=== PATIENT | male | born 2000 | race Caucasian/White ===

== ENCOUNTER 2019-10-21 17:28 | Emergency (ER) | payer BC ==
--- NOTE | 2019-10-21 18:49 | EDM.PDOC ---
ED HPI GENERAL MEDICAL PROBLEM - General Chief Complaint: ENT Problem Stated Complaint: POSSBILE FLU Time Seen by Provider: 10/21/19 18:04 Source of Information: Reports: Patient History Limitations: Reports: No Limitations - History of Present Illness INITIAL COMMENTS - FREE TEXT/NARRATIVE: 19-year-old male presents the emergency room with a chief complaint of sore throat. The patient has no fever and no cough. Patient has no shortness of breath. Patient came in from [place] 10 days ago. No other exotic travel. Patient has not been exposed to anyone with coronavirus that he knows of. Onset: Today Duration: Day(s): Severity: Mild Improves with: Reports: None Worsens with: Reports: None Context: Reports: Activity Associated Symptoms: Reports: No Other Symptoms - Related Data Allergies Allergy/AdvReac Type Severity Reaction Status Date / Time No Known Allergies Allergy Verified 10/21/19 17:44 Home Meds: Home Meds . [No Known Home Meds] 10/21/19 [History] Past Medical History - Infectious Disease History Infectious Disease History: Reports: Chicken Pox - Past Surgical History Musculoskeletal Surgical History: Reports: Other (See Below) Other Musculoskeletal Surgeries/Procedures:: right femur surgery Social & Family History - Family History Family Medical History: Noncontributory - Tobacco Use Smoking Status *Q: Never Smoker - Caffeine Use Caffeine Use: Reports: Coffee - Recreational Drug Use Recreational Drug Use: No ED ROS ENT - Review of Systems Review Of Systems: See Below Constitutional: Reports: No Symptoms HEENT: Reports: Throat Pain Respiratory: Reports: No Symptoms Cardiovascular: Reports: No Symptoms Endocrine: Reports: No Symptoms GI/Abdominal: Reports: No Symptoms : Reports: No Symptoms Musculoskeletal: Reports: No Symptoms Skin: Reports: No Symptoms Neurological: Reports: No Symptoms Psychiatric: Reports: No Symptoms Hematologic/Lymphatic: Reports: No Symptoms Immunologic: Reports: No Symptoms ED EXAM, ENT - Physical Exam Exam: See Below Text/Narrative:: 22-year-old male presents emergency room with sore throat. Patient was sent by his employer to rule out possible exposure to the virus. Patient has no fever chills or shortness of breath. Throat is very red. No exudates, no lymphadenopathy. Patient's lungs are clear patient's heart shows S1-S2 no murmurs no gallops Patient's abdomen is soft extremities are normal Exam Limited By: No Limitations General Appearance: Alert, WD/WN, No Apparent Distress Eye Exam: Bilateral Eye: Papilledema, PERRL, Proptosis Ears: Normal External Exam, Normal Canal, Hearing Grossly Normal, Normal TMs Nose: Normal Inspection, Normal Mucousa Mouth/Throat: Normal Inspection, Normal Gums, Normal Lips, Normal Oropharynx, Normal Teeth Head: Atraumatic, Normocephalic Neck: Normal Inspection, Supple, Non-Tender, Full Range of Motion Cardiovascular: Normal Peripheral Pulses, Regular Rate, Rhythm, No Edema, No JVD , No Murmur GI/Abdominal: Normal Bowel Sounds, Soft, Non-Tender, No Organomegaly. No: No Distention, No Abnormal Bruit (Male) Exam: No: Deferred Rectal (Males) Exam: No: Deferred Back: Normal Inspection, Full Range of Motion Extremities: Normal Inspection, Normal Range of Motion, No Pedal Edema, Normal Capillary Refill. No: Non-Tender Psychiatric: Normal Affect, Normal Mood Skin: Warm, Dry, Intact, Normal Color Lymphatic: No Adenopathy Course - Vital Signs Text/Narrative:: This patient presents to the emergency room with a chief complaint of sore throat. Patient denies fever chills, exotic travel to [place], exposure to anyone with coronavirus. Patient has no shortness of breath, has no cough. Patient was negative for strep and influenza At this time patient does not meet recommendation for testing for coronavirus graft plan: Patient informed to [id number] cold medicine, and informed to use zinc lozenges. Patient instructed to return for cough fever, shortness of breath. Last Recorded V/S: Last Vital Signs Temp 97.9 F 10/21/19 17:44 Pulse 56 L 10/21/19 17:44 Resp 17 10/21/19 17:44 BP 133/80 10/21/19 17:44 Pulse Ox 100 10/21/19 17:44 - Orders/Labs/Meds Orders: Active Orders 24 hr Category Date Time Status CULTURE STREP A CONFIRMATION [RM] Stat Lab 10/21/19 18:10 Results STREP SCRN A RAPID W CULT CONF [RM] Stat Lab 10/21/19 18:10 Results Isolation [COMM] Routine Oth 10/21/19 18:06 Active Departure - Departure Time of Disposition: 18:54 Disposition: Home, Self-Care 01 Clinical Impression: Pharyngitis Qualifiers: Qualified Code(s): J02.9 - Acute pharyngitis, unspecified - Discharge Information Instructions: Pharyngitis Referrals: PCP,None [Primary Care Provider] - Additional Instructions: Patient instructed to take [id number] cold medicine, Patient instructed to use zinc lozenges for sore throat patient instructed to return for any problems I.e. cough, fever, shortness of breath Sepsis Event Note - Evaluation Sepsis Screening Result: No Definite Risk - Focused Exam Vital Signs: Vital Signs Temp Pulse Resp BP Pulse Ox 10/21/19 17:44 97.9 F 56 L 17 133/80 100 Date Exam was Performed: 10/21/19 Time Exam was Performed: 18:44 - My Orders Last 24 Hours: My Active Orders 10/21/19 18:06 Isolation [COMM] Routine 10/21/19 18:10 CULTURE STREP A CONFIRMATION [RM] Stat STREP SCRN A RAPID W CULT CONF [RM] Stat - Assessment/Plan Last 24 Hours: My Active Orders 10/21/19 18:06 Isolation [COMM] Routine 10/21/19 18:10 CULTURE STREP A CONFIRMATION [RM] Stat STREP SCRN A RAPID W CULT CONF [RM] Stat
== END 2019-10-21 19:31 | disposition home or self-care (01) ==
LOC: MW.ED 17:28
DX: J02.9 Acute pharyngitis, unspecified (principal)
CPT/HCPCS: 87081; 87804; 87880-QW; 99282; 99283